=== PATIENT | male | born 1950 | race Hispanic/Latino ===

== ENCOUNTER 2017-05-08 10:03 | Emergency (ER) | payer OTHER ==
[2017-05-08] MEDS ORDERED: LIDOCAINE 1% 20 ML MDV ONE (11:14)
--- NOTE | 2017-05-08 11:47 | ER ---
Nurse's Notes [facility] Name: Uriah Ayala Age: 66 yrs Sex: Male : 1950 Arrival Date: 05/08/2017 Time: 10:04 Bed 18 Private MD: Raoul Davis Diagnosis: Sebaceous cyst Presentation: 05/08 10:35 Presenting complaint: Patient states: " I have this bump on my back that has been here ph for years but over the last few days it's gotten really swollen and it hurts." Abscess noted to R mid back area, red swollen, and warm to touch. Pt reports fever, denies N/V/D. Transition of care: patient was not received from another setting of care. Onset of symptoms was May 08, 2017. Care prior to arrival: None. 10:35 Method Of Arrival: Ambulatory ph 10:35 Acuity: NICOLE 3 ph Historical: - Allergies: 10:44 No Known Allergies; ph - Home Meds: 10:44 metformin 500 mg Oral tab 1 tab 2 times per day [Active]; unknown BP med [Active]; ph - PMHx: 10:44 Hypertension; Diabetes - NIDDM; ph - PSHx: 10:44 abscess; ph - Immunization history:: Adult Immunizations up to date. - Social history:: The patient lives at home, Smoking status: unknown. Screenin:55 Abuse screen: Denies threats or abuse. Denies injuries from another. Nutritional aj1 screening: No deficits noted. Tuberculosis screening: No symptoms or risk factors identified. 10:55 Fall Risk None identified. aj1 Assessment: 10:55 General: Appears in no apparent distress. uncomfortable, Behavior is calm, cooperative, aj1 appropriate for age. Pain: Complains of pain in back Pain does not radiate. Pain currently is 8 out of 10 on a pain scale. Quality of pain is described as sharp. Neuro: Level of Consciousness is awake, alert, obeys commands, Oriented to person, place, time, situation, Speech is normal, Facial symmetry appears normal. Cardiovascular: Patient's skin is warm and dry. Respiratory: Airway is patent Respiratory effort is even, unlabored, Respiratory pattern is regular, symmetrical. GI: No signs and/or symptoms were reported involving the gastrointestinal system. : No signs and/or symptoms were reported regarding the genitourinary system. EENT: No signs and/or symptoms were reported regarding the EENT system. Derm: Abscess located on back is golf ball sized, is hot to touch, is red, is raised. Musculoskeletal: No signs and/or symptoms reported regarding the musculoskeletal system. Range of motion: intact in all extremities. 12:06 Reassessment: cleaned patient wound and dressed with sterile dressing (4x4 gauze and ss paper tape.). Vital Signs: 10:37 BP 148 / 87; Pulse 79; Resp 18; Temp 97.9; Pulse Ox 99% on R/A; Weight 90.72 kg; Height ph 5 ft. 11 in. (180.34 cm); Pain 3/10; 10:37 Body Mass Index 27.89 (90.72 kg, 180.34 cm) ph ED Course: 10:04 Patient arrived in ED. as 10:04 [facility] is Private Physician. as 10:29 Nitesh Sanchez MD is Attending Physician. gs 10:37 Triage completed. ph 10:38 Carolina Barney, RN is Primary Nurse. aj1 10:44 Arm band placed on Patient placed in an exam room. ph 10:55 Patient has correct armband on for positive identification. Placed in gown. Bed in low aj1 position. Call light in reach. 11:11 Assist provider with I \\T\\ D: Set up I\\T\\D tray. aj 1 11:47 Lamont Brown MD is Referral Physician. gs 12:06 Patient did not have IV access during this emergency room visit. ss Administered Medications: No medications were administered Outcome: 11:47 Discharge ordered by . gs 12:06 Discharged to home ambulatory. ss 12:06 Condition: good 12:06 Discharge instructions given to patient, Instructed on discharge instructions, follow up and referral plans. medication usage, Demonstrated understanding of instructions, follow-up care, medications, Prescriptions given X 1. 12:08 Patient left the ED. ss Signatures: Carolina Barney, ASHLEY RN aj1 Sobia Pringle Shelby, RN RN Juanita Paige RN RN Nitesh Sanchez MD MD Corrections: (The following items were deleted from the chart) 11:11 10:55 No provider procedures requiring assistance completed. aj1 aj1
--- NOTE | 2017-05-08 11:47 | EDPHYS ---
Physician Documentation [facility] Name: Uriah Ayala Age: 66 yrs Sex: Male : 1950 Arrival Date: 05/08/2017 Time: 10:04 Bed 18 Private MD: [facility] ED Physician Nitesh Sanchez HPI: 05/08 11:38 This 66 yrs old Male presents to ER via Ambulatory with complaints of abscess gs to back. 11:38 The patient presents with an abscess of the right mid back. Description: The affected gs area is small, confluent, erythematous, pointed. Onset: The symptoms/episode began/occurred 2 day(s) ago. Possible cause(s): infected cyst. Associated signs and symptoms: Pertinent positives: erythema. Modifying factors: the symptoms are alleviated by nothing, the symptoms are aggravated by touching. Severity of symptoms: At their worst the symptoms were moderate, in the emergency department the symptoms are unchanged. The patient has experienced similar episodes in the past, a few times. Historical: - Allergies: 10:44 No Known Allergies; ph - Home Meds: 10:44 metformin 500 mg Oral tab 1 tab 2 times per day [Active]; unknown BP med [Active]; ph - PMHx: 10:44 Hypertension; Diabetes - NIDDM; ph - PSHx: 10:44 abscess; ph - Immunization history:: Adult Immunizations up to date. - Social history:: The patient lives at home, Smoking status: unknown. ROS: 11:38 All other systems are negative. gs Exam: 11:38 Constitutional: The patient appears in no acute distress, alert, awake. gs 11:38 Abdomen/GI: Inspection: abdomen appears normal. 11:38 Back: pain, that is mild, of the right mid back, abscess. 11:38 Musculoskeletal/extremity: Exam is negative for acute changes, abrasion. 11:38 Skin: abscess, that is small, approximately 3 cm(s), with fluctuance, with induration, with pointing, cellulitis, that is mild, well demarcated. 11:38 Neuro: Exam negative for acute changes, focal neuro deficits. Vital Signs: 10:37 BP 148 / 87; Pulse 79; Resp 18; Temp 97.9; Pulse Ox 99% on R/A; Weight 90.72 kg; Height ph 5 ft. 11 in. (180.34 cm); Pain 04/23; 10:37 Body Mass Index 27.89 (90.72 kg, 180.34 cm) ph Procedures: 11:38 I \T\ D: Incision and drainage was performed for an abscess of the Prepped with Betadine, gs Anesthetized with 5 ml's 1% Lidocaine. Incised with #10 blade. Drained small amount sebaceous cyst Loculations removed. the patient tolerated the procedure well. MDM: 10:48 Patient medically screened. 11:38 Differential diagnosis: abscess, cellulitis. Data reviewed: vital signs, nurses notes. gs Response to treatment: the patient's symptoms have markedly improved after treatment, and as a result, I will discharge patient. Administered Medications: No medications were administered Disposition: 05/08/17 11:47 Discharged to Home. Impression: Sebaceous cyst. - Condition is Stable. - Discharge Instructions: Epidermal Cyst, [id number], Cellulitis, [id number]. - Prescriptions for Keflex 500 mg Oral Capsule - take 2 capsule by ORAL route every 12 hours for 7 days; 28 capsule. - Medication Reconciliation Form, Thank You Letter, Antibiotic Education, Prescription Opioid Use form. - Follow up: Lamont Brown MD; When: 7 - 10 days. Signatures: Carolina Barney RN RN aj1 Glenda Pedersen RN RN ss Juanita Paige RN RN ph Nitesh Sanchez MD MD
[2017-05-08 12:11] VITALS: BP 148/87; TEMP 97.9; O2SAT 99
== END 2017-05-08 12:08 | disposition home or self-care (01) ==
LOC: ER 10:03
PROC: 0J970ZZ Drainage of Back Subcutaneous Tissue and Fascia, Open Approach (ICD-10-PCS; principal; 2017-05-08)
DX: L72.3 Sebaceous cyst (principal); I10 Essential (primary) hypertension; E11.9 Type 2 diabetes mellitus without complications
CPT/HCPCS: 99283